=== PATIENT | female | born 1985 | race African-American/Black ===

== ENCOUNTER 2016-10-02 05:08 | Observation (INO) | payer OTHER ==
[~2016-10-02] VITALS: Ht 162.6 cm; Wt 65.0 kg
[~2016-10-02 05:08] MED LIST: HYDR50TA3 PO; INSU100V2 SQ; NOVOLOGP2 SQ; [UNRECOGNIZED DRUG - OTHER] PO
[2016-10-02] MEDS ORDERED: METOPROLOL TARTRATE 25 MG TAB PO PRN (05:45)
[2016-10-02] MEDS ORDERED: SODIUM CHLORID 0.9% 500 ML IV SCH (05:45)
[2016-10-02] MEDS ORDERED: LACTATED RINGER'S 1000 ML IV SCH (05:45)
[2016-10-02] MEDS ORDERED: INSULIN HUMAN REGULAR 1,000 UNITS/10 ML VIAL SQ PRN (05:45)
[2016-10-02 06:45] VITALS: BP 177/102; PULSE 90; RESP 16; TEMP 98.1; O2SAT 100
--- NOTE | 2016-10-02 06:54 | PD.VS.PN ---
Pre-operative Note Pre-operative diagnosis: ESRD, need for HD access Planned procedure: L UE AVG (brach-ax with PTFE) Blood: none needed Imaging: none needed Orders: NPO Post-operative destination: PACU Operative site marked: Yes Consent: Informed consent has been obtained from Mireya Rice. I have explained the procedure in detail and discussed the risks, benefits, and potential complications. All questions have been answered. Adilson Michaud MD Oct 02, 2016 06:54
--- NOTE | 2016-10-02 06:55 | PD.VS.PN ---
Subjective Subjective/Hospital Course Pt in pre-op for AVG No interval chance since H&P on Sat in clinic. Specifically, no f/c/n/v/d. [facility] HD yesterday without incident. Objective Physical Exam no distress KNAPP unlabored breathing reg cardiac rate L UE without rashes, + palpable pulse Assessment and Plan Plan to OR for L UE AVG Adilson Michaud MD Oct 02, 2016 06:55
[2016-10-02] MEDS ORDERED: BUPIVACAINE/EPINEPHRINE 0.5% 50 ML VIAL ONE (06:56)
[2016-10-02] MEDS ORDERED: HEPARIN SODIUM - SQ 10,000 UNITS/ML VIAL ONE (06:57)
[2016-10-02] MEDS ORDERED: PROTAMINE SULFATE 50 MG/5 ML VIAL ONE (06:57)
[2016-10-02] MEDS ORDERED: HEPARIN SODIUM - IV 10,000 UNITS/10 ML VIAL ONE (06:57)
[2016-10-02 07:10] LABS: PROTHROMBIN TIME - PATIENT 11.1 SEC (9.8-11.6)
[2016-10-02] MEDS ORDERED: MIDAZOLAM HCL 2 MG/2 ML VIAL ONE (07:44)
[2016-10-02] MEDS ORDERED: DEXAMETHASONE SOD PHOS 4 MG/ML VIAL ONE (07:44)
[2016-10-02] MEDS ORDERED: FAMOTIDINE 20 MG/2 ML VIAL ONE (07:44)
[2016-10-02] MEDS ORDERED: VANCOMYCIN HCL 1000 MG VIAL ONE (07:55)
[2016-10-02] MEDS ORDERED: SODIUM CHLOR 0.9% 250 ML INJ 250 ML ONE (07:55)
[2016-10-02] MEDS ORDERED: ONDANSETRON HCL 4 MG/2 ML VIAL IV PUSH ONE (08:13)
[2016-10-02] MEDS ORDERED: PHENYLEPH/NS 1000 MCG/10 ML SYR IV ONE (08:13)
[2016-10-02] MEDS ORDERED: NEOSTIGMINE 3 MG/3 ML SYR IV ONE (08:13)
[2016-10-02] MEDS ORDERED: PROPOFOL 200 MG/20 ML AMP IV ONE (08:13)
[2016-10-02] MEDS ORDERED: SUGAMMADEX SODIUM 200 MG/2 ML VIAL IV PUSH ONE ×2 (08:51)
--- NOTE | 2016-10-02 09:41 | HHI.PR ---
Immediate Post Op Note Procedure Date: Oct 02, 2016 Pre Op Diagnosis: ESRD, need for HD access Post Op Diagnosis: ESRD, need for HD access Surgeon: Adilson Michaud Cargo Router(s): none Procedure: L UE brach-ax with PTFE Findings: 3mm artery, 6mm vein Good thrill at conclusion of case Palpable pulse at wrist Complications: none apparent Specimen(s) removed: none Estimated blood loss: 30 mL Anesthesia: General Fluids: 300 mL x'oid IVF Patient to: PACU Patient Condition: Good Implant/Devices: SEE IMPLANT LOG (if applicable) Date/Time of Procedure: SEE SURGICAL CARE RECORD Adilson Michaud MD Oct 02, 2016 09:41
[2016-10-02] MEDS ORDERED: Post-op Orders (for Pharmacy) MISC OTHER ONE (09:45)
[2016-10-02] MEDS ORDERED: DEXTROSE 50% IN WATER 50 ML VIAL(D50) IV PUSH PRN (09:45)
[2016-10-02] MEDS ORDERED: GLUCAGON 1 MG/ML VIAL OTHER PRN (09:45)
[2016-10-02] MEDS ORDERED: *morphine SULFATE 8 MG/ML PERIprocedure ONLY ONE (09:54)
[2016-10-02] MEDS ORDERED: DO NOT ADM ANY ANTICOAGULANT DRUGS XX PRN (10:45)
[2016-10-02] MEDS ORDERED: *ONDANSETRON 4 MG VIAL PERIprocedural Use ONLY ONE (10:56)
[2016-10-02] MEDS: INSULIN NovoLIN REGULAR SUPPLEMENTAL SCALE SQ SCH ×2 (11:08→17:45)
[2016-10-02] MEDS ORDERED: SODIUM CHLOR 0.9% 1000 ML INJ 1,000 ML IV PRN ×3 (12:04)
--- NOTE | 2016-10-02 12:04 | PD.CONS ---
HPI Service Nephrology Consult Requested By Reason for Consult ESRD Primary Care Physician No Primary Care Physician History of Present Illness Ms. Rice has history of type 1 diabetes mellitus, has history of ESRD for which she has been on dialysis at [facility] for several months. She underwent AV access placement today in the left arm. We are consulted to arrange for dialysis. She usually dialyzes MWF. We saw her in recovery area after surgery, she has some post operative pain but otherwise she had no specific issues. Review of Systems Constitutional: COMPLAINS OF: Fatigue, DENIES: Fever Ears, nose, mouth, throat: DENIES: Vertigo Respiratory: DENIES: Hemoptysis Gastrointestinal: DENIES: Abdominal pain, Black stools, Bloody stools Neurologic: DENIES: Localized weakness Past Family Social History Allergies: Coded Allergies: No Known Allergies (Unverified , 10/02/16) Past Medical History type 1 diabetes mellitus Hypertension ESRD Past Surgical History 3 C -sections. Active Ordered Medications Current Medications Medications (Trade) Dose Ordered Sig/Blanco Route Start Time Stop Time Status Last Admin Lactated Ringer's 1,000 ml @ 30 mls/hr Q24H IV 10/02/16 05:45 (NS 500 ml Inj) 500 ml @ 30 mls/hr [id number] IV 10/02/16 05:45 10/03/16 05:44 10/02/16 06:50 (Protonix) 40 mg HS PO 10/02/16 21:00 (Percocet 5-325 Mg) 1 tab Q4H PRN PO 10/02/16 09:45 (NovoLIN R SUPPLEMENTAL SCALE) 1 Q6HR SQ 10/02/16 12:00 (D50w (Vial) Inj) 25 ml UNSCH PRN IV PUSH 10/02/16 09:45 (Glucagon Inj) 1 mg UNSCH PRN OTHER 10/02/16 09:45 (Apresoline) 25 mg Q8HR PO 10/02/16 14:00 (Cozaar) 50 mg DAILY PO 10/03/16 09:00 (Procardia Xl) 60 mg DAILY PO 10/03/16 09:00 Miscellaneous Information ALL NURSING DEPARTME... UNSCH PRN XX 10/02/16 10:45 10/03/16 10:44 Family History grand parent with history of kidney disease. Social History no tobacco, no ETOH. Lives with her children. Physical Exam Vital Signs Vital Signs Date Time Temp Pulse Resp B/P Pulse Ox O2 Delivery O2 Flow Rate FiO2 10/02/16 11:00 78 15 153/97 97 Room Air 10/02/16 10:51 98.6 79 14 154/92 96 Room Air 10/02/16 10:30 98.0 77 15 150/81 96 Room Air 10/02/16 10:15 70 12 143/81 95 Room Air 10/02/16 10:00 74 14 144/83 94 Room Air 10/02/16 09:45 82 16 155/91 95 Room Air 10/02/16 09:42 98.6 73 16 161/92 99 Nasal Cannula 2 10/02/16 06:45 98.1 90 16 177/102 100 Physical Exam GENERAL: awake, alert, no distress. SKIN: Warm and dry. HEAD: Normocephalic. EYES: No scleral icterus. No injection or drainage. NECK: Supple, trachea midline. No JVD or lymphadenopathy. CARDIOVASCULAR: Regular rate and rhythm without murmurs, gallops, or rubs. RESPIRATORY: Breath sounds equal bilaterally. No accessory muscle use. GASTROINTESTINAL: Abdomen soft, non-tender, nondistended. MUSCULOSKELETAL: No cyanosis, or edema. BACK: Nontender without obvious deformity. No CVA tenderness. Laboratory Laboratory Tests Test 10/02/16 06:50 Prothrombin Time 11.1 Prothromb Time International 1.0 Ratio Blood Type O POSITIVE Antibody Screen NEGATIVE Blood Bank Comment Assessment and Plan Problem List: (1) End stage renal disease Plan: dialysis will be tomorrow. Monitor her fluid status and electrolytes. Repeat labs. Epogen if she is anemic. Obtain phosphorus level. (2) Essential (primary) hypertension Plan: continue Losartan. Monitor. (3) Type 1 diabetes Plan: Insulin coverage. Assessment and Plan Thanks for the consult. I will follow. Mina Latham MD Oct 02, 2016 12:04
[2016-10-02] MEDS ORDERED: ALBUMIN HUMAN 25% 25 GM/100 ML BAGP IV PRN (12:15)
[2016-10-02] MEDS ORDERED: NITROGLYCERIN 0.4 MG SL 25 TABS/BTL SL PRN (12:15)
[2016-10-02] MEDS ORDERED: MANNITOL 12.5 GM/50 ML VIAL IV PRN (12:15)
[2016-10-02] MEDS ORDERED: ACETAMINOPHEN 325 MG TAB PO PRN (12:15)
[2016-10-02] MEDS ORDERED: SODIUM CHLORIDE 0.9% FLUSH 5 ML FLUSH IVF PRN (12:15)
[2016-10-02] MEDS ORDERED: HEPARIN SODIUM - IV 10,000 UNITS/10 ML VIAL PRN (12:15)
[2016-10-02] MEDS ORDERED: GENTAMICIN SULFATE (DIALYSIS USE ONLY) 20 MG/2 ML VIAL IV PRN (12:15)
[2016-10-02] MEDS ORDERED: HEPARIN SODIUM - IV 10,000 UNITS/10 ML VIAL IVF PRN (12:15)
[2016-10-02] MEDS ORDERED: diphenhydrAMINE HCL 25 MG CAP PO PRN (12:15)
[2016-10-02] MEDS ORDERED: GELATIN 12 MM/7 MM FOAM TOP PRN (12:15)
[2016-10-02] MEDS ORDERED: cloNIDine HCL 0.1 MG TAB PO PRN (12:15)
[2016-10-02] MEDS ORDERED: ONDANSETRON HCL 4 MG/2 ML VIAL IV PRN (12:15)
[2016-10-02] MEDS ORDERED: *PROMETHAZINE 25 MG/ML VIAL PERIprocedural use ONLY ONE (13:27)
[2016-10-02] MEDS: hydrALAZINE HCL 25 MG TAB PO SCH ×2 (13:32→20:52)
[2016-10-02 14:05] LABS: BICARBONATE 31.5 MEQ/L (21.0-32.0); POTASSIUM 4.1 MEQ/L (3.5-5.1)
[2016-10-02] MEDS: oxyCODONE/ACETAMINOPHEN 5 MG/325 MG TAB PO PRN (17:44)
[2016-10-02] MEDS ORDERED: PANTOPRAZOLE SOD 40 MG DELAYED RELEASE TAB PO SCH (21:00)
[2016-10-03] VITALS: BP 154/78; PULSE 87; RESP 21; TEMP 97.8; O2SAT 96
[2016-10-03] MEDS: oxyCODONE/ACETAMINOPHEN 5 MG/325 MG TAB PO PRN ×4 (01:10→17:51)
[2016-10-03 04:00] VITALS: BP_SYST 127; BP_SYST 159; BP_DIAS 79; BP_DIAS 81; PULSE 74; PULSE 97; RESP 19; TEMP 98.8; O2SAT 95; O2SAT 98
[2016-10-03] MEDS: hydrALAZINE HCL 25 MG TAB PO SCH ×2 (05:36→13:04)
[2016-10-03] MEDS: INSULIN NovoLIN REGULAR SUPPLEMENTAL SCALE SQ SCH ×3 (06:00→12:00)
[2016-10-03 06:55] LABS: AUTOMATED NEUTROPHIL # 4.6 TH/MM3 (1.8-7.7); BASOPHIL # 0.1 TH/MM3 (0-0.2); BASOPHIL % 0.6 % (0.0-2.0); EOSINOPHIL # 0.1 TH/MM3 (0-0.4); EOSINOPHIL % 1.7 % (0.0-4.0); HEMATOCRIT 28.3 % (35.0-46.0); HEMO FLAGS DIFF FINAL; LYMPH % 33.3 % (9.0-44.0); LYMPHOCYTE # 2.6 TH/MM3 (1.0-4.8); MEAN CELL VOLUME 91.9 FL (80.0-100.0); MEAN CORPUSCULAR HEMOGLOBIN 30.4 PG (27.0-34.0); MEAN CORPUSCULAR HGB CONC 33.1 % (32.0-36.0); MONO % 5.8 % (0.0-8.0); NEUT % 58.6 % (16.0-70.0); PLATELET COUNT 192 TH/MM3 (150-450); RED BLOOD COUNT 3.07 MIL/MM3 (4.00-5.30); RED CELL DISTRIBUTION WIDTH 16.2 % (11.6-17.2); WHITE BLOOD COUNT 7.8 TH/MM3 (4.0-11.0)
[2016-10-03 07:19] LABS: BICARBONATE 29.9 MEQ/L (21.0-32.0); POTASSIUM 4.3 MEQ/L (3.5-5.1)
--- NOTE | 2016-10-03 07:24 | PD.VS.PN ---
Subjective POD #: 1 Procedure(s): L UE brach-ax with PTFE Subjective/Hospital Course c/o arm soreness around incision but otherwise feels well slept fine last night Objective Vitals/I&O Date Time Temp Pulse Resp B/P Pulse Ox O2 Delivery O2 Flow Rate FiO2 10/03/16 04:00 98.8 97 19 159/81 95 10/03/16 00:00 97.8 87 21 154/78 96 10/02/16 18:44 18 10/02/16 17:00 95 14 139/82 96 Room Air 10/02/16 16:00 98.9 95 13 132/73 97 Room Air 10/02/16 14:00 80 16 144/80 97 Room Air 10/02/16 13:00 87 15 161/89 98 Room Air 10/02/16 12:00 72 12 140/80 97 Room Air 10/02/16 11:00 78 15 153/97 97 Room Air 10/02/16 10:51 98.6 79 14 154/92 96 Room Air 10/02/16 10:30 98.0 77 15 150/81 96 Room Air 10/02/16 10:15 70 12 143/81 95 Room Air 10/02/16 10:00 74 14 144/83 94 Room Air 10/02/16 09:45 82 16 155/91 95 Room Air 10/02/16 09:42 98.6 73 16 161/92 99 Nasal Cannula 2 Exam: incisions c/d/i + thrill + radial pulse 5/5 hand strength Laboratory Laboratory Tests Test 10/02/16 10/03/16 13:02 06:00 Sodium Level 142 140 Potassium Level 4.1 4.3 Chloride Level 102 102 Carbon Dioxide Level 31.5 29.9 Anion Gap 9 8 Blood Urea Nitrogen 25 31 Creatinine 5.55 7.18 Estimat Glomerular Filtration 11 8 Rate Random Glucose 188 130 Calcium Level 7.6 8.2 White Blood Count 7.8 Red Blood Count 3.07 Hemoglobin 9.3 Hematocrit 28.3 Mean Corpuscular Volume 91.9 Mean Corpuscular Hemoglobin 30.4 Mean Corpuscular Hemoglobin 33.1 Concent Red Cell Distribution Width 16.2 Platelet Count 192 Mean Platelet Volume 7.5 Neutrophils (%) (Auto) 58.6 Lymphocytes (%) (Auto) 33.3 Monocytes (%) (Auto) 5.8 Eosinophils (%) (Auto) 1.7 Basophils (%) (Auto) 0.6 Neutrophils # (Auto) 4.6 Lymphocytes # (Auto) 2.6 Monocytes # (Auto) 0.5 Eosinophils # (Auto) 0.1 Basophils # (Auto) 0.1 CBC Comment DIFF FINAL Differential Comment Phosphorus Level 5.2 Assessment and Plan Plan 1. HD this morning via chest catheter - appreciate nephrology c/s 2. D/C after HD 3. F/U 2-3 weeks in clinic. Will schedule. Adilson Michaud MD Oct 03, 2016 07:24
[2016-10-03 08:00] VITALS: BP_SYST 160; BP_SYST 164; BP_DIAS 70; BP_DIAS 76; PULSE 85; RESP 17; TEMP 98.8; O2SAT 98
[2016-10-03 08:39] VITALS: O2SAT 98
[2016-10-03] MEDS ORDERED: EPOETIN ALFA 10,000 UNITS/ML VIAL IV PRN (08:45)
[2016-10-03] MEDS ORDERED: NIFEdipine 60 MG SUSTAINED RELEASE TAB PO SCH (09:00)
[2016-10-03] MEDS ORDERED: LOSARTAN 50 MG TAB PO SCH (09:00)
--- NOTE | 2016-10-03 09:00 | PD.VS.DC ---
Discharge Summary Admission Date: Oct 02, 2016 at 10:36 Discharge Date: Oct 03, 2016 Admission Diagnosis: (1) End stage renal disease Discharge Diagnosis: (1) End stage renal disease Status: Chronic Brief History from admission Pt is a 31/F post op AV Fistula creation to left UE Pt appears well with slight discomfort to left UE Procedure(s): L UE brach-ax with PTFE Significant Findings Laboratory Tests Test 10/02/16 10/03/16 13:02 06:00 Blood Urea Nitrogen 25 MG/DL (7-18) 31 MG/DL (7-18) Creatinine 5.55 MG/DL 7.18 MG/DL (0.50-1.00) (0.50-1.00) Estimat Glomerular Filtration 11 ML/MIN (>89) 8 ML/MIN (>89) Rate Random Glucose 188 MG/DL 130 MG/DL (74-106) (74-106) Calcium Level 7.6 MG/DL 8.2 MG/DL (8.5-10.1) (8.5-10.1) Red Blood Count 3.07 MIL/MM3 (4.00-5.30) Hemoglobin 9.3 GM/DL (11.6-15.3) Hematocrit 28.3 % (35.0-46.0) Phosphorus Level 5.2 MG/DL (2.5-4.9) Hospital Course: GENERAL: Pt alert and oriented time 3, laying in bed comfortably, with mild discomfort to LUE at the surgical site SKIN: Warm and dry. Incision to LUE intact no redness, swelling or drainage noted, Palpable radial pulses bilat, + Thrill noted LUE NECK: Supple, trachea midline. No JVD or lymphadenopathy. CARDIOVASCULAR: Regular rate and rhythm without murmurs, gallops, or rubs. RESPIRATORY: Breath sounds equal bilaterally. No accessory muscle use. MUSCULOSKELETAL: No cyanosis, or edema. Discharge Condition: Good Discharge Disposition: Discharge Home Discharge Instructions: Follow-up in clinic at scheduled appt time (11/02/16 @ 0915) No heavy lifting to LUE over 10 IBS Keep incision open to air clean and dry Call the office if you have any questions or concerns Paulina MONIQUE-[facility] [phone] Any questions or concerns: Call [facility] at [facility] [phone] Paulina Zarate Oct 03, 2016 09:00
[2016-10-03] MEDS ORDERED: OXYC1CAP PO (13:35)
--- NOTE | 2016-10-03 14:32 | HHI.NPPN ---
Subjective General Problems: Anemia Renal Failure: Chronic, End Stage Renal Disease Interval History She is in route to hemodialysis. Some left arm pain but motor function is intact. Potential discharge today. (Nette Parra) Review of Systems Musculoskeletal MS: Pain/Stiffness (Nette Parra) Objective Data Data 10/02/16 10/03/16 19:00 07:00 Intake Total 625 ml 480 ml Output Total 30 ml Balance 595 ml 480 ml Intake Oral 150 ml 480 ml Other 475 ml Output Estimated Blood Loss 30 ml # Voids 4 # Bowel Movements 0 Vital Signs Date Time Temp Pulse Resp B/P Pulse Ox O2 Delivery O2 Flow Rate FiO2 10/03/16 09:16 20 10/03/16 08:39 98 21 10/03/16 08:00 98.8 85 17 164/76 98 160/70 10/03/16 04:00 98.8 97 19 159/81 95 10/03/16 00:00 97.8 87 21 154/78 96 10/02/16 17:00 95 14 139/82 96 Room Air 10/02/16 16:00 98.9 95 13 132/73 97 Room Air (Nette Parra) -: 10/03/16 0600 10/03/16 0600 Physical Exam General Appearance: Well Developed, Well Nourished, No Acute Distress, Comfortable ( Nette Parra) Eyes Eye Exam: Pupils Equal (Nette Parra) Throat Throat Exam: Oral Mucosa Washam & Moist (Nette Parra) Neck Neck Exam: Neck Supple (Nette Parra) Pulmonary Resp Exam: Clear Bilaterally, Breath Sounds Equal, No Distress (Nette Parra) Cardiology CV Exam: Regular, Normal Sinus Rhythm, Good Perfusion (Nette Parra) Gastrointestinal/Abdomen GI Exam: Soft, Non-Tender, Bowel Sounds Present (Nette Parra) Musculoskeletal MS Exam: Joints Intact, Normal Tone (Nette Parra) Integumentary Skin Exam: Clear, Warm, Dry Skin Remarks left arm s/p AVG placement, incision dry/well approximated, good thrill/bruit ( Nette Parra) Extremeties Extremities Exam: No Edema, Pedal Pulses Palpable (Nette Parra) Neurologic Neuro Exam: Alert, Awake, Oriented, Speech Clear, Moving All Extremities ( Nette Parra) Psychiatric Psych Exam: Appropriate Responses (Nette Parra) Assessment/Plan Discussed Condition With: Patient Assessment Summary: Anemia of CKD, End Stage Renal Disease Problem List: (1) End stage renal disease Plan: she will have dialysis today, normally -- schedule no other acute renal concerns given Epogen with dialysis permcath functioning without complications continue renvela for metabolic bone disorder if cleared by vascular, she can be discharged to resume outpatient arrangements , she goes to [facility] in [place] (2) Essential (primary) hypertension Plan: BP stable, continue present medications and monitor effect (3) Type 1 diabetes Plan: continue Insulin coverage. BG acceptable. (Nette Parra) Plan patient was seen and examined during dialysis. She is doing well, to be discharged today after dialysis. (Mina Latham MD) Nette Parra Oct 03, 2016 14:32 Mina Latham MD Oct 04, 2016 14:16
[2016-10-03 16:00] VITALS: BP 158/85; PULSE 88; RESP 17; TEMP 97.3; O2SAT 98
[2016-10-03] MEDS ORDERED: SEVELAMER CARBONATE 800 MG TAB PO SCH (17:00)
--- NOTE | 2016-10-06 21:04 | MP ---
cc: PARISH MICHAUD MD DATE OF SURGERY 10/02/16 PREOPERATIVE DIAGNOSIS End-stage renal disease needs dialysis access POSTOPERATIVE DIAGNOSIS: End-stage renal disease needs dialysis access OPERATION Left brachial artery access arteriovenous graft with PTFE SURGEON Debra Michaud MD ROTO GRAVURE PRESS OPERATOR None. ANESTHESIA General. INDICATIONS Ms. Rice is a 31 year old lady who is a dialysis dependent. She was dialyzed through a right chest catheter every Mondays, Saturday and Fridays and she was taken to the operating room for access. She has no suitable autogenous vein by preoperative imaging and is taken to the operating room for prosthetic access. PROCEDURE IN DETAIL Informed consent was obtained from the patient. She was taken to the operating room and placed supine on the operating room table. An appropriate time out was taken to ensure patient identification, operative site and planned procedure. The administration of one gram of vancomycin was initiated prior to skin incision and will be discontinued after single preoperative dose. Vancomycin was chosen because of the patient's end-stage renal disease. Everyone in the room agreed and we proceeded. Her left arm was prepped and draped and an incision was made in the antecubital and carried down to subcutaneous tissue with electrocautery. The brachial artery was identified and dissected free for several centimeters. A separate incision was made in the axilla, carried down to subcutaneous tissue with electrocautery. The axillary vein was identified and encircled with vessel loops. A tunnel was then created between these two and a 6 mm Shishmaref-López graft was passed between these incisions taking caution not to twist it. The patient was systemically heparinized with 3000 units of IV heparin brachial artery was obtained with Profunda clamps and a longitudinal arteriotomy was made with an 11 blade, extended with Sean scissors. The graft was spatulated and sewn end-to-side with running 5-0 Shishmaref-López sutured in place. At the completion flushed and noted to be hemostatic. A clamp was placed on the graft proximal and distal aspect of the axillary vein were controlled with Profunda clamps and a longitudinal venotomy was made with an 11 blade extended with Sean scissors. The graft was spatulated, sewn end-to-side with running 5-0 Shishmaref-López suture. At the completion it was flushed and noted to be hemostatic. The wounds were infiltrated with Marcaine confirmed hemostasis and closed with 2-0 Polysorb 3-0 Polysorb and 4-0 Monocryl. Sponge and needle counts were correct at the end of the case. I was present and scrubbed for the entire procedure. MD CHAR Her/ /9:51 AM /8:48 PM
== END 2016-10-03 18:46 | disposition home or self-care (01) ==
LOC: HSDC 05:08 → HSDI 09:48 → INTOOBSV 10:36 → OBSVTOIN 10:36 → N07B 17:35 → UNDODISIN 10-03 18:46
PROVIDERS: ADMIT Surgery; ATTEND Surgery
DX: I12.0 Hypertensive chronic kidney disease with stage 5 chronic kidney disease or end stage renal disease (principal); E10.22 Type 1 diabetes mellitus with diabetic chronic kidney disease; N18.6 End stage renal disease; Z99.2 Dependence on renal dialysis; Z79.4 Long term (current) use of insulin; Z84.1 Family history of disorders of kidney and ureter
CPT/HCPCS: 01844; 36830; 80048; 82948; 84100; 85025; 85610; 86850; 86900; 86901; 90935; 94150; 96374; C1768; G0378; J1100; J1580; J1644; J1815; J2250; J2270; J2370; J2405; J2550; J2710; J3010; J3370; J7040; J7050; G0257; J2720

== ENCOUNTER 2017-06-18 06:51 | Inpatient (IN) | payer OTHER ==
[2017-06-18] VITALS (11 sets, daily range): BP systolic 151–161; BP diastolic 70–87; PULSE 82–117; RESP 16–18; TEMP 98.1–98.8; O2SAT 96–98
[~2017-06-18] VITALS: Ht 162.6 cm; Wt 73.0 kg
[~2017-06-18 06:51] MED LIST changes: +OXYC1CAP PO
--- NOTE | 2017-06-18 07:29 | RADRPT ---
EXAM DATE/TIME: 06/18/2017 07:02 [facility] COMPARISON: No previous studies available for comparison. INDICATIONS : Pre op access revision. Evaluate for pneumonia, pneumothorax, or any communicable diseases. MEDICAL HISTORY : Hypertension. Diabetes mellitus type II. SURGICAL HISTORY : section. Port access. ENCOUNTER: Initial ACUITY: 1 day PAIN SCORE: 0/10 LOCATION: Bilateral chest FINDINGS: A single view of the chest demonstrates the lungs to be symmetrically aerated without evidence of mas s, infiltrate or effusion. Right IJ dialysis catheter in good position. The cardiomediastinal contour s are unremarkable. Osseous structures are intact. CONCLUSION: 1. No acute cardiopulmonary disease. Romulo Barahona MD on June 18, 2017 at 7:27 Board Certified Radiologist. This report was verified electronically.
[2017-06-18] MEDS ORDERED: POVIDONE IODINE 5% (ANTISEPSIS KIT) 4 APPLICATIONS EACH NARE PRN (07:30)
[2017-06-18] MEDS ORDERED: INSULIN HUMAN REGULAR 1,000 UNITS/10 ML VIAL SQ PRN (07:30)
[2017-06-18] MEDS ORDERED: SODIUM CHLORID 0.9% 500 ML IV PRN (07:30)
[2017-06-18] MEDS ORDERED: METOPROLOL TARTRATE 25 MG TAB PO PRN (07:30)
[2017-06-18] MEDS ORDERED: LACTATED RINGER'S 1000 ML IV PRN (07:30)
[2017-06-18] MEDS ORDERED: CHLORHEXIDINE GLUCONATE 2 % 1 PACK (2 CLOTHS) TOPICAL PRN (07:30)
[2017-06-18 07:52] LABS: AUTOMATED NEUTROPHIL # 3.6 TH/MM3 (1.8-7.7); BASOPHIL # 0.1 TH/MM3 (0-0.2); BASOPHIL % 1.2 % (0.0-2.0); EOSINOPHIL # 0.2 TH/MM3 (0-0.4); EOSINOPHIL % 3.6 % (0.0-4.0); HEMATOCRIT 26.2 % (35.0-46.0); HEMO FLAGS DIFF FINAL; LYMPH % 27.2 % (9.0-44.0); LYMPHOCYTE # 1.7 TH/MM3 (1.0-4.8); MEAN CELL VOLUME 98.9 FL (80.0-100.0); MEAN CORPUSCULAR HEMOGLOBIN 33.1 PG (27.0-34.0); MEAN CORPUSCULAR HGB CONC 33.5 % (32.0-36.0); MONO % 8.9 % (0.0-8.0); NEUT % 59.1 % (16.0-70.0); PLATELET COUNT 210 TH/MM3 (150-450); RED BLOOD COUNT 2.65 MIL/MM3 (4.00-5.30); RED CELL DISTRIBUTION WIDTH 14.5 % (11.6-17.2); WHITE BLOOD COUNT 6.1 TH/MM3 (4.0-11.0)
[2017-06-18 08:09] LABS: POTASSIUM 3.8 MEQ/L (3.5-5.1)
[2017-06-18] MEDS ORDERED: LEVEMIR SQ (08:16)
[2017-06-18] MEDS ORDERED: METO25TA3 PO (08:16)
[2017-06-18] MEDS ORDERED: ATOR40TA16 PO (08:16)
[2017-06-18] MEDS ORDERED: HUMA100I3 SQ (08:16)
[2017-06-18] MEDS ORDERED: HYDR-3799 PO (08:16)
[2017-06-18] MEDS ORDERED: THROMBIN (TOPICAL) 20,000 UNIT SPRAY KIT ONE (08:23)
[2017-06-18] MEDS ORDERED: HEPARIN-NS/PF INJ 500 ML ONE (08:23)
[2017-06-18] MEDS ORDERED: VANCOMYCIN HCL 1000 MG VIAL ONE (08:23)
[2017-06-18] MEDS ORDERED: HEPARIN SODIUM - IV 10,000 UNITS/10 ML VIAL ONE (08:23)
[2017-06-18] MEDS ORDERED: BUPIVACAINE HCL PF 0.5% 30 ML VIAL ONE (08:23)
[2017-06-18] MEDS ORDERED: PROTAMINE SULFATE 50 MG/5 ML VIAL ONE (08:23)
[2017-06-18 08:25] LABS: BACTERIA, URINE RARE /hpf; BLOOD, URINE MOD (NEG); COMMENT (UR) CULT NOT INDICATED; CULTURE IF INDICATED CULT NOT INDICATED; GLUCOSE,URINE 300 mg/dL (NEG); KETONE, URINE NEG (NEG); NITRITE,URINE NEG (NEG); PH, URINE 8.5 (5.0-8.5); SQUAMOUS EPITHELIAL CELL URINE 8 /hpf (0-5)
[2017-06-18 08:35] LABS: URINE COLOR RED (YELLW/STRAW)
[2017-06-18 08:48] LABS: APTT (PATIENT) 28.9 SEC (24.3-30.1); INTERNATIONAL NORMALIZED RATIO 1.2 RATIO; PROTHROMBIN TIME - PATIENT 13.4 SEC (9.8-11.6)
--- NOTE | 2017-06-18 08:48 | HHI.HP ---
History of Present Illness Chief Complaint: failing L UE AVG History of Present Illness 32 yo female with ESRD s/p L UE brach-ax AVG and then multiple interventions at outside facility, now with clear pseudoaneurysm of inflow. HD MWF via catheter Past/Family/Social History Past Medical History HTN DM Past Surgical History C sxn L UE AVG Social History nonsmoker Family History NC Home Medications Reported Medications Atorvastatin (Atorvastatin) 40 Mg Tab, 40 MG PO HS for Cholesterol Management, # 30 TAB 0 Refills 06/18/17 Metoprolol Tartrate (Metoprolol Tartrate) 25 Mg Tab, 25 MG PO BID, #60 TAB 0 Refills 06/18/17 Hydralazine HCl (Hydralazine HCl) 25 Mg Tablet, 50 MG PO TID for Blood Pressure Management, #90 TAB 0 Refills 06/18/17 Insulin Lispro (Human) Inj (Humalog Kwikpen Pen Inj) 300 Unit/3 Ml Pen, UNITS SQ ACHS SLIDING SCALE for Blood Sugar Management, PEN 0 Refills 06/18/17 Insulin Detemir Inj (Levemir Inj) 1,000 unit/ 10 ML Vial, 7 UNITS SQ BID for Blood Sugar Management, VIAL 0 Refills Do not mix with any other Insulin. 06/18/17 Discontinued Reported Medications Oxycodone (Oxycodone) 5 Mg Cap, 5 MG PO Q6H Y for PAIN, #20 CAP 0 Refills 10/03/16 [Bicar] No Conflict Check, 15 MG PO TID 10/01/16 Insulin Human Regular Inj (Humulin R Inj) 1,000 Unit/10 Ml Vial, 6 UNITS SQ HS for Blood Sugar Management, #10 ML 0 Refills 10/01/16 Insulin Human Regular Inj (Humulin R Inj) 1,000 Unit/10 Ml Vial, 2 UNITS SQ AC BREAKFAST for Blood Sugar Management, #10 ML 0 Refills 10/01/16 Insulin Aspart Inj (Novolog Inj) 1,000 Unit/10 Ml Vial, 6 UNITS SQ HS for Blood Sugar Management, #0 ML 0 Refills 10/01/16 Insulin Aspart Inj (Novolog Inj) 1,000 Unit/10 Ml Vial, 2 UNITS SQ AC BREAKFAST for Blood Sugar Management, #0 ML 0 Refills 10/01/16 Hydrochlorothiazide (Hydrochlorothiazide) 50 Mg Tab, 50 MG PO TID, #30 TAB 0 Refills 10/01/16 Coded Allergies: No Known Allergies (Unverified , 10/02/16) Review of Systems Constitutional: DENIES: Fever, Chills Cardiovascular: DENIES: Chest pain Physical Exam Vitals/I&O Date Time Temp Pulse Resp B/P (MAP) Pulse Ox O2 Delivery O2 Flow Rate FiO2 06/18/17 08:20 98.3 91 18 165/97 (119) 97 Neuro: alert, NAD HEENT: NC/AT Neck: no JVD Heart: reg rate, no M Lungs: clear B Vascular: L UE thrill pseudoaneurysm L UE Extremities: hand ok Laboratory Tests Test 06/18/17 07:15 06/18/17 08:20 White Blood Count 6.1 Red Blood Count 2.65 Hemoglobin 8.8 Hematocrit 26.2 Mean Corpuscular Volume 98.9 Mean Corpuscular Hemoglobin 33.1 Mean Corpuscular Hemoglobin Concent 33.5 Red Cell Distribution Width 14.5 Platelet Count 210 Mean Platelet Volume 7.9 Neutrophils (%) (Auto) 59.1 Lymphocytes (%) (Auto) 27.2 Monocytes (%) (Auto) 8.9 Eosinophils (%) (Auto) 3.6 Basophils (%) (Auto) 1.2 Neutrophils # (Auto) 3.6 Lymphocytes # (Auto) 1.7 Monocytes # (Auto) 0.5 Eosinophils # (Auto) 0.2 Basophils # (Auto) 0.1 CBC Comment DIFF FINAL Differential Comment Urine Color RED Urine Turbidity HAZY Urine pH 8.5 Urine Specific Eagle 1.015 Urine Protein GREATER THAN 600 Urine Glucose (UA) 300 Urine Ketones NEG Urine Occult Blood MOD Urine Nitrite NEG Urine Bilirubin NEG Urine Urobilinogen LESS THAN 2.0 Urine Leukocyte Esterase TRACE Urine RBC Urine WBC 7 Urine Squamous Epithelial Cells 8 Urine Bacteria RARE Microscopic Urinalysis Comment CULT NOT INDICATED Blood Urea Nitrogen 28 Creatinine 7.57 Random Glucose 221 Calcium Level 8.9 Sodium Level 137 Potassium Level 3.8 Chloride Level 97 Carbon Dioxide Level 33.0 Anion Gap 7 Estimat Glomerular Filtration Rate 8 Caprini VTE Risk Assessment Caprini VTE Risk Assessment: Mod/High Risk (score >= 2) Caprini Risk Assessment Model Point Value = 1 Point Value = 2 Point Value = 3 Point Value = 5 Age 41-60 Minor surgery BMI > 25 kg/m2 Swollen legs Varicose veins or History of unexplained or recurrent spontaneous Oral contraceptives or hormone replacement Sepsis (< 1 month) Serious lung disease, including pneumonia (< 1 month) Abnormal pulmonary function Acute myocardial infarction Congestive heart failure (< 1 month) History of inflammatory bowel disease Medical patient at bed rest Age 61-74 Arthroscopic surgery Major open surgery (> 45 min) Laparoscopic surgery (> 45 min) Malignancy Confined to bed (> 72 hours) Immobilizing plaster cast Central venous access Age >= 75 History of VTE Family history of VTE Factor V Leiden Prothrombin [id number] Lupus anticoagulant Anticardiolipin antibodies Elevated serum homocysteine Heparin-induced thrombocytopenia Other congenital or acquired thrombophilia Stroke (< 1 month) Elective arthroplasty Hip, pelvis, or leg fracture Acute spinal cord injury (< 1 month) Prophylaxis Regimen Total Risk Factor Score Risk Level Prophylaxis Regimen 0-1 Low Early ambulation 2 Moderate Order ONE of the following: *Sequential Compression Device (SCD) *Heparin 5000 units SQ BID 3-4 Higher Order ONE of the following medications: *Heparin 5000 units SQ TID *Enoxaparin/Lovenox 40 mg SQ daily (WT < 150 kg, CrCl > 30 mL/min) *Enoxaparin/Lovenox 30 mg SQ daily (WT < 150 kg, CrCl > 10-29 mL/min) *Enoxaparin/Lovenox 30 mg SQ BID (WT < 150 kg, CrCl > 30 mL/min) AND/OR *Sequential Compression Device (SCD) 5 or more Highest Order ONE of the following medications: *Heparin 5000 units SQ TID (Preferred with Epidurals) *Enoxaparin/Lovenox 40 mg SQ daily (WT < 150 kg, CrCl > 30 mL/min) *Enoxaparin/Lovenox 30 mg SQ daily (WT < 150 kg, CrCl > 10-29 mL/min) *Enoxaparin/Lovenox 30 mg SQ BID (WT < 150 kg, CrCl > 30 mL/min) AND *Sequential Compression Device (SCD) Assessment and Plan Plan L UE access revision Adilson Michaud MD Jun 18, 2017 08:48
[2017-06-18] MEDS ORDERED: diphenhydrAMINE HCL 50 MG/ML VIAL ONE (09:32)
[2017-06-18] MEDS ORDERED: FAMOTIDINE 20 MG/2 ML VIAL ONE (09:32)
--- NOTE | 2017-06-18 09:54 | EKG ---
Date Performed: 06/18/2017 Time Performed: 07:46:57 PTAGE: 32 years EKG: Sinus rhythm NORMAL ECG NO PREVIOUS TRACING DOCTOR: Lionel Licona Interpretating Date/Time 06/18/2017 09:52:42
[2017-06-18] MEDS ORDERED: IOHEXOL 350 MG/ML 50 ML BTL (for RAD DIAG) IVCONTRAST ONE (10:17)
--- NOTE | 2017-06-18 10:44 | HHI.PR ---
Immediate Post Op Note Procedure Date: Jun 18, 2017 Pre Op Diagnosis: L UE AVG pseudoaneurysm Post Op Diagnosis: L UE AVG pseudoaneurysm Surgeon: Adilson Michaud Senior Technical Support Engineer(s): Monica Eason [id number] Procedure: 1. L UE fistulogram 2. L UE access revision (6mm interposition) Findings: pseudoaneurysm, no outflow stenosis Additional Information: tracheal edema, leaving intubated post procedure Complications: none Specimen(s) removed: none for pathology Estimated blood loss: 75mL Anesthesia: General Drains: None Fluids: 500mL IVF Patient to: PACU Patient Condition: Fair Implant/Devices: SEE IMPLANT LOG (if applicable) Date/Time of Procedure: SEE SURGICAL CARE RECORD Adilson Michaud MD Jun 18, 2017 10:44
[2017-06-18] MEDS ORDERED: HYDROmorphone HCL 2 MG TAB PO PRN (10:45)
[2017-06-18] MEDS ORDERED: GLUCAGON 1 MG/ML VIAL OTHER PRN (10:45)
[2017-06-18] MEDS ORDERED: MORPHINE SULFATE 4 MG/ML INJ IV PUSH PRN (10:45)
[2017-06-18] MEDS ORDERED: DEXTROSE 50% IN WATER 50 ML VIAL(D50) IV PUSH PRN (10:45)
[2017-06-18] MEDS ORDERED: DO NOT ADM ANY ANTICOAGULANT DRUGS PRN (11:15)
[2017-06-18] MEDS ORDERED: *RESP: ALBUTEROL 2.5 MG/3 ML NEB (PRN) PERIprocedural Use ONLY NEB ONE (11:19)
[2017-06-18] MEDS ORDERED: ONDANSETRON HCL 4 MG/2 ML VIAL IV PUSH ONE (12:00)
[2017-06-18] MEDS ORDERED: ROCURONIUM INJ 50 MG/5 ML SYRINGE IV PUSH ONE (12:00)
[2017-06-18] MEDS ORDERED: PHENYLEPH/NS 1000 MCG/10 ML SYR IV ONE (12:00)
[2017-06-18] MEDS ORDERED: hydrALAZINE HCL 20 MG/ML VIAL IV ONE (12:00)
[2017-06-18] MEDS ORDERED: NEOSTIGMINE 3 MG/3 ML SYR IV ONE (12:00)
[2017-06-18] MEDS ORDERED: DEXAMETHASONE SOD PHOS 4 MG/ML VIAL IV ONE (12:00)
[2017-06-18] MEDS ORDERED: PROPOFOL 200 MG/20 ML AMP IV ONE (12:00)
[2017-06-18] MEDS ORDERED: SUCCINYLCHOLINE CHLORIDE 100 MG/5 ML SYRINGE IV PUSH ONE (12:00)
[2017-06-18] MEDS ORDERED: MIDAZOLAM HCL 2 MG/2 ML VIAL IV ONE (12:00)
[2017-06-18] MEDS ORDERED: LIDOCAINE HCL 1% PF 5 ML AMPULE OTHER ONE (12:00)
--- NOTE | 2017-06-18 12:02 | RADRPT ---
EXAM DATE/TIME: 06/18/2017 11:31 [facility] COMPARISON: CHEST SINGLE AP, June 18, 2017, 7:02. INDICATIONS : Infiltrate. MEDICAL HISTORY : Hypertension. Diabetes mellitus type II. SURGICAL HISTORY : section. Port access. ENCOUNTER: Subsequent ACUITY: 1 day PAIN SCORE: Non-responsive. LOCATION: Bilateral chest FINDINGS: The lungs are hypoaerated. The initial vascular prominence has developed throughout both lungs. Heart is mildly enlarged. Tunneled permacath is seen on the right. CONCLUSION: 1. Cardiomegaly with acute pulmonary congestion. 2. Tunneled dialysis catheter Sujit Milian MD on June 18, 2017 at 11:59 Board Certified Radiologist. This report was verified electronically.
[2017-06-18] MEDS ORDERED: *MEPERIDINE 25 MG INJ VIAL PERIprocedural Use ONLY ONE (12:05)
[2017-06-18] MEDS: INSULIN ASPART SUPPLEMENTAL SCALE SQ SCH ×3 (12:45→21:07)
[2017-06-18] MEDS: hydrALAZINE HCL 25 MG TAB PO SCH ×2 (14:53→17:20)
[2017-06-18] MEDS: METOPROLOL TARTRATE 25 MG TAB PO SCH (19:35)
[2017-06-18] MEDS ORDERED: ATORVASTATIN 40 MG TAB PO SCH (21:00)
--- NOTE | 2017-06-18 21:51 | MP ---
cc: PARISH MICHAUD MD DATE OF SURGERY 06/18/17 PRIMARY DIAGNOSIS Failing left upper extremity access with pseudoaneurysm. POSTOPERATIVE DIAGNOSIS Failing left upper extremity access with pseudoaneurysm. PROCEDURE 1. Left upper extremity fistulogram 2. Access revision with an 8 mm interposition PTFE graft. 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 Rice is 32 year old lady who has left brachial artery axillary vein arteriovenous graft. She has several obvious areas of pseudoaneurysm and one is eroding the skin. She is taken to the operating room revision of this particular area. Additionally, at this time she needs a fistulogram to determine there is no outflow stenosis. DESCRIPTION OF PROCEDURE Informed consent was obtained from the patient. She was taken to the operating room and placed supine on the operating room table. Appropriate time-out was taken to show patient identity, site and planned procedure. The administration of a gram of vancomycin was initiated prior to skin incision, will be discontinued after a single preoperative dose. Everyone in the room agreed with time-out and we proceeded. Vancomycin was chosen because of the patient's end-stage renal disease. Left arm was prepped and draped and an incision was made over previous incision down by the antecubitum and carried down through subcutaneous tissue with electrocautery. The fistula was identified and encircled with the vessel loop. A separate incision was made central to the area of skin erosion and this was done longitudinally along the course of the fistula, carried down through the subcutaneous tissue with electrocautery and the fistula was identified and encircled with a vessel loop. A 21 gauge micropuncture sheath was used to access the fistula between these two and this was exchanged using Seldinger technique for a micropuncture sheath through which a fistulogram was obtained. A fistulogram showed the patient to have several stents in the vein but widely patent. The micropuncture sheath was removed and the graftotomy was closed with a 5-0 Prolene suture. The patient was systemically heparinized with 3000 units of IV heparin. Proximal and distal control of the area on either side of the pseudoaneurysm was obtained with profunda clamps and the graft was excised as well as the skin and thrombus surrounding it. A 6 mm PTFE was brought up on the field and sewn end-to-end both proximally and distally with running 5-0 Casmalia-López suture. At completion it was flushed and hemostatic. There was a nice thrill in the fistula. The heparin was reversed with protamine. The wound was irrigated, made hemostatic and closed with 2-0 Polysorb, 3-0 Polysorb and 2-0 nylon sutures. There was a nice Doppler signal in the wrist and nice thrill in the fistula. The patient was then transported to recovery room intubated with plans to extubate shortly after arrival in recovery room. There were no complications. I was present and scrubbed and performed the entire procedure. MD CHAR Her/ /3:29 PM /9:31 PM
[2017-06-19] VITALS (13 sets, daily range): BP systolic 137–170; BP diastolic 75–88; PULSE 92–120; RESP 18; TEMP 98–98.6; O2SAT 95–98
[2017-06-19 05:26] LABS: MEAN CELL VOLUME 99.7 FL (80.0-100.0); MEAN CORPUSCULAR HEMOGLOBIN 32.7 PG (27.0-34.0); MEAN CORPUSCULAR HGB CONC 32.7 % (32.0-36.0); PLATELET COUNT 186 TH/MM3 (150-450); RED CELL DISTRIBUTION WIDTH 14.6 % (11.6-17.2); REVIEW FLAG FINAL; WHITE BLOOD COUNT 7.8 TH/MM3 (4.0-11.0)
[2017-06-19 05:52] LABS: BICARBONATE 28.2 MEQ/L (21.0-32.0)
[2017-06-19] MEDS: INSULIN ASPART SUPPLEMENTAL SCALE SQ SCH (08:00)
--- NOTE | 2017-06-19 09:09 | PD.VS.PN ---
Subjective POD #: 1 Procedure(s): L UE fistulogram L UE access revision Subjective/Hospital Course Pain controlled Pt denies hand pain Pt reported she had a good night Pt w/o complaints Objective Vitals/I&O Date Time Temp Pulse Resp B/P (MAP) Pulse Ox O2 Delivery O2 Flow Rate FiO2 06/19/17 08:00 102 06/19/17 07:30 98.6 105 18 170/88 (115) 95 06/19/17 07:15 95 06/19/17 06:00 106 06/19/17 05:00 94 06/19/17 04:00 92 06/19/17 04:00 98.0 92 18 151/80 (103) 97 06/19/17 03:00 92 06/19/17 02:00 92 06/19/17 01:00 94 06/19/17 00:30 98.0 94 18 137/75 (95) 98 06/19/17 00:00 111 06/18/17 22:00 105 06/18/17 21:00 102 06/18/17 20:00 98.4 117 18 161/70 (100) 98 06/18/17 20:00 117 06/18/17 19:00 116 06/18/17 18:00 107 06/18/17 17:00 117 06/18/17 16:00 94 06/18/17 15:01 98.1 94 16 153/87 (109) 96 06/18/17 15:00 82 06/18/17 14:18 98.8 95 16 151/85 (107) 97 06/18/17 14:00 89 06/18/17 13:15 98.1 85 20 167/95 (119) 100 Nasal Cannula 2 06/18/17 13:00 85 20 167/95 (119) 100 Nasal Cannula 2 06/18/17 12:00 85 20 166/59 (94) 100 Nasal Cannula 2 06/18/17 11:45 87 20 182/106 (131) 99 Nasal Cannula 2 06/18/17 11:30 90 20 162/102 (122) 93 Nasal Cannula 2 06/18/17 11:21 98.1 85 20 157/96 (116) 95 Nasal Cannula 4 06/19/17 06/19/17 06/19/17 07:00 15:00 23:00 Intake Total 420 ml Output Total 1200 ml Balance -780 ml Exam: GENERAL: ASfebrile 32/F/Alert in NAD/GCS 15 SKIN: Warm and dry. 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 Laboratory Laboratory Tests Test 06/19/17 04:28 White Blood Count 7.8 Red Blood Count 2.60 Hemoglobin 8.5 Hematocrit 26.0 Mean Corpuscular Volume 99.7 Mean Corpuscular Hemoglobin 32.7 Mean Corpuscular Hemoglobin Concent 32.7 Red Cell Distribution Width 14.6 Platelet Count 186 Mean Platelet Volume 7.9 Blood Urea Nitrogen 40 Creatinine 9.30 Random Glucose 191 Calcium Level 9.1 Sodium Level 137 Potassium Level 4.0 Chloride Level 96 Carbon Dioxide Level 28.2 Anion Gap 13 Estimat Glomerular Filtration Rate 6 Assessment and Plan Assessment: (1) End stage renal disease Status: Chronic (2) Essential (primary) hypertension Status: Chronic (3) Type 1 diabetes Status: Acute Plan L UE access revision POD 1 doing well w/o complications Plan D/C today Pt scheduled for HD this afternoon w/ her HD center in [place] Arranged OP f/u Paulina MONIQUE [facility] [phone] Discharge Planning D/C today Paulina Zarate Jun 19, 2017 09:09
[2017-06-19] MEDS ORDERED: PERC5TAB12 PO (09:14)
--- NOTE | 2017-06-19 09:20 | PD.VS.DC ---
Discharge Summary Admission Date: Jun 18, 2017 at 10:49 Discharge Date: Jun 19, 2017 Admission Diagnosis: (1) End stage renal disease (2) Essential (primary) hypertension (3) Type 1 diabetes Discharge Diagnosis: (1) End stage renal disease ICD Codes: N18.6 - End stage renal disease Status: Chronic (2) Essential (primary) hypertension ICD Codes: I10 - Essential (primary) hypertension Status: Chronic (3) Type 1 diabetes ICD Codes: E10.9 - Type 1 diabetes mellitus without complications Status: Acute Brief History from admission 32 yo female with ESRD s/p L UE brach-ax AVG and then multiple interventions at outside facility, now with clear pseudoaneurysm of inflow. HD MWF via catheter Procedure(s): L UE fistulogram L UE access revision Significant Findings GENERAL: ASfebrile 32/F/Alert in NAD/GCS 15 SKIN: Warm and dry. 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 Laboratory Tests Test 06/18/17 07:15 06/18/17 08:20 06/19/17 04:28 Red Blood Count 2.65 MIL/MM3 (4.00-5.30) 2.60 MIL/MM3 (4.00-5.30) Hemoglobin 8.8 GM/DL (11.6-15.3) 8.5 GM/DL (11.6-15.3) Hematocrit 26.2 % (35.0-46.0) 26.0 % (35.0-46.0) Monocytes (%) (Auto) 8.9 % (0.0-8.0) Urine Color RED (YELLW/STRAW) Urine Turbidity HAZY (CLEAR) Urine Protein GREATER THAN 600 mg/dL Urine Glucose (UA) 300 mg/dL (NEG) Urine Occult Blood MOD (NEG) Urine Leukocyte Esterase TRACE (NEG) Urine WBC 7 /hpf (0-5) Urine Bacteria RARE /hpf (NONE) Blood Urea Nitrogen 28 MG/DL (7-18) 40 MG/DL (7-18) Creatinine 7.57 MG/DL (0.50-1.00) 9.30 MG/DL (0.50-1.00) Random Glucose 221 MG/DL (74-106) 191 MG/DL (74-106) Chloride Level 97 MEQ/L (98-107) 96 MEQ/L (98-107) Carbon Dioxide Level 33.0 MEQ/L (21.0-32.0) Estimat Glomerular Filtration Rate 8 ML/MIN (>89) 6 ML/MIN (>89) Prothrombin Time 13.4 SEC (9.8-11.6) Hospital Course: 32 yo female with ESRD s/p L UE brach-ax AVG and then multiple interventions at outside facility, now with clear pseudoaneurysm of inflow. HD MWF via catheter Pt s/p POD 1 L UE fistulogram/L UE access revision doinf well w/o complications Pt to be d/c today HD scheduled this afternoon at her HD center Post op f/u arranged Allergies Coded Allergies Type Severity Reaction Last Updated Verified No Known Allergies 10/02/16 No Recent Impressions Chest X-Ray 06/18/17 0000 Signed Impressions: Service Date/Time: Sunday, June 18, 2017 11:31 - CONCLUSION: 1. Cardiomegaly with acute pulmonary congestion. 2. Tunneled dialysis catheter Sujit Milian MD Chest X-Ray 06/18/17 0000 Signed Impressions: Service Date/Time: Sunday, June 18, 2017 07:02 - CONCLUSION: 1. No acute cardiopulmonary disease. Romulo Barahona MD 06/17/17 06/17/17 06/18/17 06/18/17 06/19/17 06/19/17 06:00 18:00 06:00 18:00 06:00 18:00 Intake Total 980 ml 420 ml Output Total 75 ml 1200 ml Balance 905 ml -780 ml Intake Oral 480 ml 420 ml Other 500 ml Output Urine Total 0 ml 1200 ml Estimated Blood Loss 75 ml Laboratory Tests Test 06/18/17 07:15 06/18/17 08:20 06/19/17 04:28 White Blood Count 6.1 TH/MM3 7.8 TH/MM3 Red Blood Count 2.65 MIL/MM3 2.60 MIL/MM3 Hemoglobin 8.8 GM/DL 8.5 GM/DL Hematocrit 26.2 % 26.0 % Mean Corpuscular Volume 98.9 FL 99.7 FL Mean Corpuscular Hemoglobin 33.1 PG 32.7 PG Mean Corpuscular Hemoglobin Concent 33.5 % 32.7 % Red Cell Distribution Width 14.5 % 14.6 % Platelet Count 210 TH/MM3 186 TH/MM3 Mean Platelet Volume 7.9 FL 7.9 FL Neutrophils (%) (Auto) 59.1 % Lymphocytes (%) (Auto) 27.2 % Monocytes (%) (Auto) 8.9 % Eosinophils (%) (Auto) 3.6 % Basophils (%) (Auto) 1.2 % Neutrophils # (Auto) 3.6 TH/MM3 Lymphocytes # (Auto) 1.7 TH/MM3 Monocytes # (Auto) 0.5 TH/MM3 Eosinophils # (Auto) 0.2 TH/MM3 Basophils # (Auto) 0.1 TH/MM3 CBC Comment DIFF FINAL Differential Comment Urine Color RED Urine Turbidity HAZY Urine pH 8.5 Urine Specific [place] 1.015 Urine Protein GREATER THAN 600 mg/dL Urine Glucose (UA) 300 mg/dL Urine Ketones NEG mg/dL Urine Occult Blood MOD Urine Nitrite NEG Urine Bilirubin NEG Urine Urobilinogen LESS THAN 2.0 MG/DL Urine Leukocyte Esterase TRACE Urine RBC /hpf Urine WBC 7 /hpf Urine Squamous Epithelial Cells 8 /hpf Urine Bacteria RARE /hpf Microscopic Urinalysis Comment CULT NOT INDICATED Blood Urea Nitrogen 28 MG/DL 40 MG/DL Creatinine 7.57 MG/DL 9.30 MG/DL Random Glucose 221 MG/DL 191 MG/DL Calcium Level 8.9 MG/DL 9.1 MG/DL Sodium Level 137 MEQ/L 137 MEQ/L Potassium Level 3.8 MEQ/L 4.0 MEQ/L Chloride Level 97 MEQ/L 96 MEQ/L Carbon Dioxide Level 33.0 MEQ/L 28.2 MEQ/L Anion Gap 7 MEQ/L 13 MEQ/L Estimat Glomerular Filtration Rate 8 ML/MIN 6 ML/MIN Prothrombin Time 13.4 SEC Prothromb Time International Ratio 1.2 RATIO Activated Partial Thromboplast Time 28.9 SEC Orders Procedure Category Date Status Time Basic Metabolic Panel LAB 06/18/17 Complete (Bmp) 07:01 Urinalysis - C+S If LAB 06/18/17 Complete Indicated 07:01 Complete Blood Count LAB 06/18/17 Complete With Diff 07:01 Coag Profile LAB 06/18/17 Complete 07:01 Type And Screen BBK 06/18/17 Complete 07:01 Electrocardiogram CAV 06/18/17 Resulted Chest, Single Ap RADDIAG 06/18/17 Resulted Lactated Ringer's MED 06/18/17 In Process 1000 Ml Inj (Lr 1000 M 07:30 Sodium Chlorid 0.9% MED 06/18/17 In Process 500 Ml Inj (Ns 500 M 07:30 Metoprolol Tartrate MED 06/18/17 In Process (Lopressor) 07:30 Povidone Iod 5% MED 06/18/17 In Process Antisepsis Kit 07:30 Chlorhexidine 2% MED 06/18/17 In Process Cloth (Chlorhexidine 07:30 Insulin Human Regular MED 06/18/17 In Process Inj (Novolin R Inj 07:30 Protamine Sulfate Inj MED 06/18/17 Complete (Protamine Sulfate 08:23 Heparin Inj (Heparin MED 06/18/17 Complete Inj) 08:23 Vancomycin Inj MED 06/18/17 Complete (Vancomycin Inj) 08:23 Bupivacaine Pf 0.5% MED 06/18/17 Complete Inj (Marcaine Pf 0.5 08:23 Thrombin Top Benoit MED 06/18/17 Complete (Thrombin Top Benoit) 08:23 Heparin-Ns/Pf Inj MED 06/18/17 Complete (Heparin-Ns/Pf Inj) 08:23 Diphenhydramine Inj MED 06/18/17 Complete (Benadryl Inj) 09:32 Famotidine Inj MED 06/18/17 Complete (Pepcid Inj) 09:32 Iohexol 350 Inj MED 06/18/17 Complete (Omnipaque 350 Inj) 10:17 Admit To Inpatient ADMITTING 06/18/17 Transmitted Code Status CODE 06/18/17 Transmitted 10:44 Vital Signs (Adult) DERRICK 06/18/17 Complete 10:44 Work Adjustment Instructor / DERRICK 06/18/17 In Process Telemetry 10:44 Activity Oob Ad Breann DERRICK 06/19/17 In Process 10:44 Activity Bed Rest DERRICK 06/18/17 In Process 10:44 Notify Parameters DERRICK 06/18/17 In Process 10:44 Precautions DERRICK 06/18/17 In Process 10:44 Diet Npo DIET 06/18/17 Complete Lunch Basic Metabolic Panel LAB 06/19/17 Complete (Bmp) 06:00 Cbc No Diff, Includes LAB 06/19/17 Complete Plts 06:00 Chest, Single Ap RADDIAG 06/18/17 Resulted Consult Architectural Examiner CONS 06/18/17 Transmitted Consult Nephrology CONS 06/18/17 Transmitted Oxycodone (Roxicodone) MED 06/18/17 In Process 10:45 Hydromorphone MED 06/18/17 In Process (Dilaudid) 10:45 Morphine Inj MED 06/18/17 In Process (Morphine Inj) 10:45 Scd Bilateral/Knee DERRICK 06/18/17 In Process High 10:44 Blood Glucose Goal DERRICK 06/18/17 In Process (Criteria) 10:44 Hypoglycemia 70 Mg/Dl DERRICK 06/18/17 In Process Or < 10:[address]: Other DERRICK 06/18/17 In Process 10:44 Dextrose 50% In Renetta MED 06/18/17 In Process (Vial) Inj (D50w (Vi 10:45 Glucagon Inj MED 06/18/17 In Process (Glucagon Inj) 10:45 Insulin Aspart MED 06/18/17 In Process Supplemtl Scale 12:45 Atorvastatin (Lipitor) MED 06/18/17 In Process 21:00 Hydralazine MED 06/18/17 In Process (Apresoline) 13:00 Metoprolol Tartrate MED 06/18/17 In Process (Lopressor) 21:00 *Albuterol Neb MED 06/18/17 Complete (*Albuterol Neb 11:19 (Hub Use Only)Inp Phy CONS 06/18/17 Transmitted Cons/Ref *Meperidine Inj MED 06/18/17 Complete (*Demerol Inj 12:05 Heparin Inj (Heparin MED 06/19/17 In Process Inj) 10:00 (Hub Use Only)Inp Phy CONS 06/18/17 Transmitted Cons/Ref Misc Nursing MED 06/18/17 In Process Information 11:15 Diet Renal DIET 06/18/17 Transmitted Lunch [facility] [place] [facility] Class Iv [facility]17 Complete MIN General/Pacu [facility] 06/18/17 Complete Post Anesthesia Oxygen [facility] 06/18/17 Complete Bedside Glucose [facility] 06/18/17 Complete Pacu [facility] 06/18/17 Complete Hourly Fluoroscopy,Port Up RADDIAG 06/18/17 Logged To 1 Hr Attending Discharge DISCHARGE 06/19/17 Transmitted Order Vital Signs Date Time Temp Pulse Resp B/P (MAP) Pulse Ox O2 Delivery O2 Flow Rate FiO2 06/19/17 08:00 102 06/19/17 07:30 98.6 105 18 170/88 (115) 95 06/19/17 07:15 95 06/19/17 06:00 106 06/19/17 05:00 94 06/19/17 04:00 92 06/19/17 04:00 98.0 92 18 151/80 (103) 97 06/19/17 03:00 92 06/19/17 02:00 92 06/19/17 01:00 94 06/19/17 00:30 98.0 94 18 137/75 (95) 98 06/19/17 00:00 111 06/18/17 22:00 105 06/18/17 21:00 102 06/18/17 20:00 98.4 117 18 161/70 (100) 98 06/18/17 20:00 117 06/18/17 19:00 116 06/18/17 18:00 107 06/18/17 17:00 117 06/18/17 16:00 94 06/18/17 15:01 98.1 94 16 153/87 (109) 96 06/18/17 15:00 82 06/18/17 14:18 98.8 95 16 151/85 (107) 97 06/18/17 14:00 89 06/18/17 13:15 98.1 85 20 167/95 (119) 100 Nasal Cannula 2 06/18/17 13:00 85 20 167/95 (119) 100 Nasal Cannula 2 06/18/17 12:00 85 20 166/59 (94) 100 Nasal Cannula 2 06/18/17 11:45 87 20 182/106 (131) 99 Nasal Cannula 2 06/18/17 11:30 90 20 162/102 (122) 93 Nasal Cannula 2 06/18/17 11:21 98.1 85 20 157/96 (116) 95 Nasal Cannula 4 06/18/17 08:20 98.3 91 18 165/97 (119) 97 Discharge Condition: Good Discharge Disposition: Discharge Home Discharge Instructions: Follow up in 2W at scheduled appointment time Call to report any new concerns or developments Call to report any Redness, Drainage or Swelling to LUE AVF incision site May shower then pat dry incision site Apply non stick dressing then gauze then Kerlix then tape for the next few days (while drainage is present) Change daily May leave open to air on Post op day 3 if no drainage is present Paulina MONIQUE [facility] [phone] Any questions or concerns: Call [facility] Surgery at [facility] [phone] Paulina Zarate Jun 19, 2017 09:20
[2017-06-19] MEDS: METOPROLOL TARTRATE 25 MG TAB PO SCH (09:22)
[2017-06-19] MEDS: hydrALAZINE HCL 25 MG TAB PO SCH (09:23)
[2017-06-19] MEDS ORDERED: HEPARIN SODIUM - SQ 10,000 UNITS/ML VIAL SQ SCH (10:00)
== END 2017-06-19 11:06 | disposition home or self-care (01) | DRG 252 ==
LOC: HSDC 06:51 → HSDI 10:49 → HCPC 13:45
PROVIDERS: ADMIT Surgery; ATTEND Surgery
PROC: 03WY0JZ Revision of Synthetic Substitute in Upper Artery, Open Approach (ICD-10-PCS; principal; 2017-06-18 08:56)
DX: T82.858A Stenosis of other vascular prosthetic devices, implants and grafts, initial encounter (principal); N18.6 End stage renal disease; E10.22 Type 1 diabetes mellitus with diabetic chronic kidney disease; I12.0 Hypertensive chronic kidney disease with stage 5 chronic kidney disease or end stage renal disease; Y83.2 Surgical operation with anastomosis, bypass or graft as the cause of abnormal reaction of the patient, or of later complication, without mention of misadventure at the time of the procedure; Z79.4 Long term (current) use of insulin
CPT/HCPCS: 71010; 76000; 76937; 80048; 81001; 82948; 85025; 85027; 85610; 85730; 86850; 86900; 86901; 93005; 94664; J0330; J0360; J1100; J1200; J1644; J1815; J2175; J2250; J2370; J2405; J2710; J2720; J3370; J7040; J7613; Q9967